=== PATIENT | male | born 1965 | race African-American/Black ===

== ENCOUNTER 2017-02-07 11:07 | Emergency (ER) | payer MEDICAID ==
[~2017-02-07] VITALS: Ht 157.5 cm; Wt 78.0 kg
[~2017-02-07 11:07] MED LIST: OXYC-279 PO
[2017-02-07 11:11] VITALS: Ht 157.5 cm; Wt 78.0 kg
[2017-02-07] MEDS ORDERED: NAPR-260 PO (13:08)
--- NOTE | 2017-02-07 14:40 | ERA ---
ER Documentation Chief Complaint Date/Time DATE: 02/07/17 TIME: 14:35 Chief Complaint REFILL OF NAPROXEN HPI 51-year-old male with a chief complaint of chronic pain. Patient states he has had this pain for the past 15 years. It had been less than patient had stopped taking medication, however lately it has been flaring up. Pain is described as twitching and occurs at rest and with movement. Nothing makes the pain worse. Only thing that makes pain better per the patient's history is naproxen. He now is requesting naproxen. Denies fever, trauma, abdominal pain, chest pain, shortness of breath. Is taking Motrin with minimal to mild relief. States that he used to be prescribed to naproxen. Naproxen worked very well but cannot get it due to lack of insurance/primary care provider. No other complaints. No new symptoms. ROS All systems reviewed and are negative except as per history of present illness. Medications Home Meds Active Scripts Naproxen* (Naprosyn*) 500 Mg Tablet, 500 MG PO BID Y for PAIN AND/OR INFLAMMATION, #30 TAB Prov:AILYN BOWMAN PA-C 02/07/17 Oxycodone HCl/Acetaminophen (Percocet 5-325 mg Tablet) 1 Each Tablet, 1 EACH PO TID for PAIN LEVEL 6-10, #12 TAB Prov:SANFORD HIGGINS MD 04/03/16 PMhx/Soc Medical and Surgical Hx: pt denies Medical Hx, pt denies Surgical Hx Physical Exam Vitals Vital Signs Date Time Temp Pulse Resp B/P Pulse Ox O2 Delivery O2 Flow Rate FiO2 02/07/17 11:11 98.2 72 18 115/72 99 Physical Exam Const: 51-year-old male. Well-appearing. No acute distress. Head: Atraumatic Eyes: Normal Conjunctiva ENT: Normal External Ears, Nose and Mouth. Neck: Full range of motion..~ No meningismus. Resp: Clear to auscultation bilaterally Cardio: Regular rate and rhythm, no murmurs. Cap refill less than 2 seconds , radial pulses 2+ bilaterally. Abd: Soft, non tender, non distended. Normal bowel sounds Skin: No petechiae or rashes Back: No midline or flank tenderness Ext: No cyanosis, or edema. Full range of motion.No contractures. Neur: Awake and alert. Neurovascularly intact bilaterally. Psych: Normal Mood and Affect Procedures/MDM 51-year-old male presenting for medication refill of naproxen. Patient has chronic pain and states that naproxen is only medication is upper work form. Patient connected this medication anymore due to lack of insurance/PCP. No new complaints. Physical exam unremarkable. Patient will be prescribed naproxen 500 mg twice daily. Have handed the patient a list of clinics he can go for chronic management. I have spoke with the patient regarding their condition and future management. They have verbally responded that they understand their status and treatment plan. The patients vitals are stable, and their current condition is appropriate for discharge. The patient will be given discharge instructions with return precautions. Departure Diagnosis: Primary Impression: Encounter for medication refill Condition: Stable Patient Instructions: Naproxen Sodium Oral tablet Referrals: [facility] YOU HAVE RECEIVED A MEDICAL SCREENING EXAM AND THE RESULTS INDICATE THAT YOU DO NOT HAVE A CONDITION THAT REQUIRES URGENT TREATMENT IN THE EMERGENCY DEPARTMENT. FURTHER EVALUATION AND TREATMENT OF YOUR CONDITION CAN WAIT UNTIL YOU ARE SEEN IN YOUR DOCTORS OFFICE WITHIN THE NEXT 1-2 DAYS. IT IS YOUR RESPONSIBILITY TO MAKE AN APPOINTMENT FOR FOLOW-UP CARE. IF YOU HAVE A PRIMARY DOCTOR --you should call your primary doctor and schedule an appointment IF YOU DO NOT HAVE A PRIMARY DOCTOR YOU CAN CALL OUR PHYSICIAN REFERRAL HOTLINE AT IF YOU CAN NOT AFFORD TO SEE A PHYSICIAN YOU CAN CHOSE FROM THE FOLLOWING [facility] [address] [facility]. [facility] [address] [facility] [facility] [address] [facility] [facility] [address] [facility] [facility] [address] [facility] [facility] [facility]) Usted se fournier hecho un examen mdico de control que le indica que no est en nano condicin que requiera tratamiento urgente en el Departamento de Emergencia. Un estudio ms profundo y el tratamiento de arango condicin pueden esperar sin ningn riesgo hasta que usted sea atendida/o en el consultorio de arango mdico o nano cl darnell. Es responsabilidad suya arreglar nano jose para el seguimiento del daisy. MANEJO DE CONDICIONES NO URGENTES EN EL FUTURO 1) Si usted tiene un mdico de atencin primaria: Usted debera llamar a arango mdico de atencin primaria antes de venir al departamento de emergencia. Despus de las horas de consultorio, arango doctor o arango asociado/a est disponible por telfono. El mdico o enfermero de cassi en el servicio telefnico puede asesorarle por kaleb medio para atender el problema, o daisy contrario se puede programar nano jose. 2) Si usted no tiene un mdico de atencin primaria: Llame al mdico o clnica de referencia que aparece abajo jesse las horas de consultorio para hacer nano jose para que le vean. CLINICAS: [facility] [phone] [address] [facility] [facility] [phone] [address] [facility] [facility] [phone] [address] [facility]. [facility] [phone] [facility]. [place] [id number] [phone] [facility] [phone] [address] Additional Instructions: Follow up with your PCP within the next 1-3 days for a more thorough evaluation and a possible referral to a specialist. Return the the emergency department immediately if symptoms worsen or change. If you have any questions regarding medications, ask your pharmacist or us before you leave. If any adverse reactions occur while taking your medications, discontinue the treatment and return to the emergency department immediately. Take your medications as directed, and complete the entire course of treatment. AILYN BOWMAN PA-C Feb 07, 2017 14:40
== END 2017-02-07 13:53 | disposition home or self-care (01) ==
LOC: FTE 11:07
DX: Z76.0 Encounter for issue of repeat prescription (principal)
CPT/HCPCS: 99281

== ENCOUNTER 2017-07-02 10:19 | Emergency (ER) | END 2017-07-02 14:40 | disposition home or self-care (01) ==